=== PATIENT | male | born 1995 | race Caucasian/White ===

== ENCOUNTER 2017-07-06 18:33 | Observation (INO) | payer OTHER ==
[2017-07-06] MEDS ORDERED: ASPIRIN PO ONE (19:40)
[2017-07-06 19:51] LABS: Hematocrit 44.7 % (35.5-45.6); Mean Corpuscular HGB Conc 34 % (32-34); Mean Corpuscular Hemoglobin 27 pg (28-32); Mean Corpuscular Volume 82 fl (84-94); Platelet Count 196 K/mm3 (140-440); Red Blood Count 5.46 M/mm3 (3.65-5.03); Red Cell Distribution Width 13.8 % (13.2-15.2)
[2017-07-06 20:05] LABS: Alanine Aminotransferase 13 units/L (7-56); Albumin 4.1 g/dL (3.9-5); BUN/Creatinine Ratio 12; Blood Urea Nitrogen 7 mg/dL (9-20); Calcium 8.6 mg/dL (8.4-10.2); Hemolysis Index 10
[2017-07-06 20:18] LABS: HDL Cholesterol 30 mg/dL (40-59); LDL Cholesterol,Direct 46 mg/dL (50-130)
[2017-07-06 21:10] LABS: Band Neutrophils # (Manual) 0.1 K/mm3; Basophils % (Manual) 0 % (0.0-1.8); Total Cells Counted 100
[2017-07-06 21:11] LABS: RBC Morphology Normal
[2017-07-06 21:32] LABS: Bilirubin,Urine NEG (Negative); Blood,Urine NEG (Negative); Color,Urine Straw (Yellow); Protein,Urine <15 mg/dL mg/dL (Negative); Urobilinogen,Urine < 2.0 mg/dL (<2.0)
[2017-07-06] MEDS ORDERED: TORADOL IV ONE (21:36)
--- NOTE | 2017-07-06 23:40 | Emergency Department Report ---
ED Chest Pain HPI - General Chief Complaint: Dizziness Stated Complaint: FLU LIKE SYMPTOMS Time Seen by Provider: 07/06/17 21:16 Source: patient Mode of arrival: Ambulatory Limitations: No Limitations - History of Present Illness Initial Comments: Patient is a 22-year-old male who is presenting with chest pain. Patient states that roughly 3-4 days ago he had several days? Dominate with fever this started to subside and he started beginning to have chest discomfort. Patient states the chest discomfort has been slowly and gradually tightening in its severity. Patient states is approximately a 6 out of 10 at this time. Patient states is worse when he reads deep. Patient denies any cough congestion and abdominal pain current nausea vomiting or diarrhea at this time. 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 Otherwise this patient has no past medical history Severity scale (0 -10): 7 - Related Data Allergies Allergy/AdvReac Type Severity Reaction Status Date / Time No Known Allergies Allergy Unverified 07/06/17 19:33 Heart Score - HEART Score History: Slightly suspicious EKG: Normal Age: < 45 Risk factors: No known risk factors Troponin: 1-3x normal limit HEART Score: 1 ED Review of Systems ROS: Stated complaint: FLU LIKE SYMPTOMS Other details as noted in HPI Comment: All other systems reviewed and negative ED Past Medical Hx - Past Medical History Previous Medical History?: Yes Additional medical history: taxoplasmosis - Surgical History Past Surgical History?: Yes Additional Surgical History: testicular @ 1 yrs old - Social History Smoking Status: Never Smoker Substance Use Type: Alcohol ED Physical Exam - General Limitations: No Limitations General appearance: alert, in no apparent distress - Head Head exam: Present: atraumatic, normocephalic - Eye Eye exam: Present: normal appearance - ENT ENT exam: Present: mucous membranes moist - Neck Neck exam: Present: normal inspection - Respiratory Respiratory exam: Present: normal lung sounds bilaterally. Absent: respiratory distress - Cardiovascular Cardiovascular Exam: Present: regular rate, normal rhythm. Absent: systolic murmur, diastolic murmur, rubs, gallop - GI/Abdominal GI/Abdominal exam: Present: soft, normal bowel sounds - Rectal Rectal exam: Present: deferred - Extremities Exam Extremities exam: Present: normal inspection - Back Exam Back exam: Present: normal inspection - Neurological Exam Neurological exam: Present: alert, oriented X3 - Psychiatric Psychiatric exam: Present: normal affect, normal mood - Skin Skin exam: Present: warm, dry, intact, normal color. Absent: rash ED Course Vital Signs 07/06/17 07/06/17 19:33 22:36 Temperature 98.5 F Pulse Rate 69 Respiratory 16 18 Rate Blood Pressure 98/63 O2 Sat by Pulse 100 Oximetry ZIYAD score - Ziyad Score Age > 65: (0) No Aspirin use within the Past 7 Days: (0) No 3 or more CAD Risk Factors: (0) No 2 or more Angina events in past 24 hrs: (0) No Known CAD with more than 50% Stenosis: (0) No Elevated Cardiac Markers: (0) No ST Deviation Greater than 0.5mm: (0) No ZIYAD Score: 0 ED Medical Decision Making - Lab Data Result diagrams: 07/06/17 19:43 07/06/17 19:43 Lab Results 07/06/17 07/06/17 07/06/17 Range/Units 19:43 19:43 21:49 WBC 6.4 (4.5-11.0) K/mm3 RBC 5.46 H (3.65-5.03) M/mm3 Hgb 15.0 (11.8-15.2) gm/dl Hct 44.7 (35.5-45.6) % MCV 82 L (84-94) fl MCH 27 L (28-32) pg MCHC 34 (32-34) % RDW 13.8 (13.2-15.2) % Plt Count 196 (140-440) K/mm3 [place] % (Auto) Flexographic Press Plate Setter Add Manual Diff Complete Total Counted 100 Seg Neuts % (Manual) 51.0 (40.0-70.0) % Band Neutrophils % 1.0 % Lymphocytes % (Manual) 26.0 (13.4-35.0) % Reactive Lymphs % (Man) 2.0 % Monocytes % (Manual) 19.0 H (0.0-7.3) % Eosinophils % (Manual) 1.0 (0.0-4.3) % Basophils % (Manual) 0 (0.0-1.8) % Metamyelocytes % 0 % Myelocytes % 0 % Promyelocytes % 0 % Blast Cells % 0 % Nucleated RBC % Not Reportable Seg Neutrophils # Man 3.3 (1.8-7.7) K/mm3 Band Neutrophils # 0.1 K/mm3 Lymphocytes # (Manual) 1.7 (1.2-5.4) K/mm3 Abs React Lymphs (Man) 0.1 K/mm3 Monocytes # (Manual) 1.2 H (0.0-0.8) K/mm3 Eosinophils # (Manual) 0.1 (0.0-0.4) K/mm3 Basophils # (Manual) 0.0 (0.0-0.1) K/mm3 Metamyelocytes # 0.0 K/mm3 Myelocytes # 0.0 K/mm3 Promyelocytes # 0.0 K/mm3 Blast Cells # 0.0 K/mm3 WBC Morphology Not Reportable Hypersegmented Neuts Not Reportable Hyposegmented Neuts Not Reportable Hypogranular Neuts Not Reportable Smudge Cells Not Reportable Toxic Granulation Not Reportable Toxic Vacuolation Not Reportable Dohle Bodies Not Reportable Pelger-Huet Anomaly Not Reportable [place] Rods Not Reportable Platelet Estimate Appears normal Clumped Platelets Not Reportable Plt Clumps, EDTA Not Reportable Large Platelets Not Reportable Giant Platelets Not Reportable Platelet Satelliting Not Reportable Plt Morphology Comment Not Reportable RBC Morphology Normal Dimorphic RBCs Not Reportable Polychromasia Not Reportable Hypochromasia Not Reportable Poikilocytosis Not Reportable Anisocytosis Not Reportable Microcytosis Not Reportable Macrocytosis Not Reportable Spherocytes Not Reportable Pappenheimer Bodies Not Reportable Sickle Cells Not Reportable Target Cells Not Reportable Tear Drop Cells Not Reportable Ovalocytes Not Reportable Helmet Cells Not Reportable [place] Bodies Not Reportable [place] Rings Not Reportable [place]anna Cells Not Reportable Bite Cells Not Reportable Crenated Cell Not Reportable Elliptocytes Not Reportable Acanthocytes (Spur) Not Reportable Rouleaux Not Reportable Hemoglobin C Crystals Not Reportable Schistocytes Not Reportable Malaria parasites Not Reportable [place] Bodies Not Reportable Hem Pathologist Commnt No D-Dimer < 135.0 (0-234) ng/mlDDU Sodium 137 (137-145) mmol/L Potassium 4.4 (3.6-5.0) mmol/L Chloride 100.6 (98-107) mmol/L Carbon Dioxide 26 (22-30) mmol/L Anion Gap 15 mmol/L BUN 7 L (9-20) mg/dL Creatinine 0.6 L (0.8-1.5) mg/dL Estimated GFR > 60 ml/min BUN/Creatinine Ratio 12 % Glucose 86 (75-100) mg/dL Calcium 8.6 (8.4-10.2) mg/dL Total Bilirubin 0.70 (0.1-1.2) mg/dL AST 20 (5-40) units/L ALT 13 (7-56) units/L Alkaline Phosphatase 59 (35-129) units/L Troponin T 0.070 H (0.00-0.029) ng/mL Total Protein 6.9 (6.3-8.2) g/dL Albumin 4.1 (3.9-5) g/dL Albumin/Globulin Ratio 1.5 % Triglycerides 82 (2-149) mg/dL Cholesterol 87 (50-199) mg/dL LDL Cholesterol Direct 46 L (50-130) mg/dL HDL Cholesterol 30 L (40-59) mg/dL Cholesterol/HDL Ratio 2.90 % Urine Color (Yellow) Urine Turbidity (Clear) Urine pH (5.0-7.0) Ur Specific [place] (1.003-1.030) Urine Protein (Negative) mg/dL Urine Glucose (UA) (Negative) mg/dL Urine Ketones (Negative) mg/dL Urine Blood (Negative) Urine Nitrite (Negative) Urine Bilirubin (Negative) Urine Urobilinogen (<2.0) mg/dL Ur Leukocyte Esterase (Negative) Urine WBC (Auto) (0.0-6.0) /HPF Urine RBC (Auto) (0.0-6.0) /HPF 07/06/17 07/06/17 Range/Units 22:05 Unknown WBC (4.5-11.0) K/mm3 RBC (3.65-5.03) M/mm3 Hgb (11.8-15.2) gm/dl Hct (35.5-45.6) % MCV (84-94) fl MCH (28-32) pg MCHC (32-34) % RDW (13.2-15.2) % Plt Count (140-440) K/mm3 [place] % (Auto) Add Manual Diff Total Counted Seg Neuts % (Manual) (40.0-70.0) % Band Neutrophils % % Lymphocytes % (Manual) (13.4-35.0) % Reactive Lymphs % (Man) % Monocytes % (Manual) (0.0-7.3) % Eosinophils % (Manual) (0.0-4.3) % Basophils % (Manual) (0.0-1.8) % Metamyelocytes % % Myelocytes % % Promyelocytes % % Blast Cells % % Nucleated RBC % Seg Neutrophils # Man (1.8-7.7) K/mm3 Band Neutrophils # K/mm3 Lymphocytes # (Manual) (1.2-5.4) K/mm3 Abs React Lymphs (Man) K/mm3 Monocytes # (Manual) (0.0-0.8) K/mm3 Eosinophils # (Manual) (0.0-0.4) K/mm3 Basophils # (Manual) (0.0-0.1) K/mm3 Metamyelocytes # K/mm3 Myelocytes # K/mm3 Promyelocytes # K/mm3 Blast Cells # K/mm3 WBC Morphology Hypersegmented Neuts Hyposegmented Neuts Hypogranular Neuts Smudge Cells Toxic Granulation Toxic Vacuolation Dohle Bodies Pelger-Huet Anomaly [place] Rods Platelet Estimate Clumped Platelets Plt Clumps, EDTA Large Platelets Giant Platelets Platelet Satelliting Plt Morphology Comment RBC Morphology Dimorphic RBCs Polychromasia Hypochromasia Poikilocytosis Anisocytosis Microcytosis Macrocytosis Spherocytes Pappenheimer Bodies Sickle Cells Target Cells Tear Drop Cells Ovalocytes Helmet Cells [place]ph[place] Bodies [place] Rings [place] Cells Bite Cells Crenated Cell Elliptocytes Acanthocytes (Spur) Rouleaux Hemoglobin C Crystals Schistocytes Malaria parasites [place] Bodies Hem Pathologist Commnt D-Dimer (0-234) ng/mlDDU Sodium (137-145) mmol/L Potassium (3.6-5.0) mmol/L Chloride (98-107) mmol/L Carbon Dioxide (22-30) mmol/L Anion Gap mmol/L BUN (9-20) mg/dL Creatinine (0.8-1.5) mg/dL Estimated GFR ml/min BUN/Creatinine Ratio % Glucose (75-100) mg/dL Calcium (8.4-10.2) mg/dL Total Bilirubin (0.1-1.2) mg/dL AST (5-40) units/L ALT (7-56) units/L Alkaline Phosphatase (35-129) units/L Troponin T 0.076 H (0.00-0.029) ng/mL Total Protein (6.3-8.2) g/dL Albumin (3.9-5) g/dL Albumin/Globulin Ratio % Triglycerides (2-149) mg/dL Cholesterol (50-199) mg/dL LDL Cholesterol Direct (50-130) mg/dL HDL Cholesterol (40-59) mg/dL Cholesterol/HDL Ratio % Urine Color Straw (Yellow) Urine Turbidity Clear (Clear) Urine pH 6.0 (5.0-7.0) Ur Specific [place] 1.004 (1.003-1.030) Urine Protein <15 mg/dl (Negative) mg/dL Urine Glucose (UA) Neg (Negative) mg/dL Urine Ketones Neg (Negative) mg/dL Urine Blood Neg (Negative) Urine Nitrite Neg (Negative) Urine Bilirubin Neg (Negative) Urine Urobilinogen < 2.0 (<2.0) mg/dL Ur Leukocyte Esterase Neg (Negative) Urine WBC (Auto) 1.0 (0.0-6.0) /HPF Urine RBC (Auto) 1.0 (0.0-6.0) /HPF - Radiology Data Radiology results: report reviewed No acute process - Medical Decision Making Patient is a 22-year-old male who is presenting with chest pain. Patient has no risk factors for coronary disease however he did on routine initiation of chest pain protocol have elevated troponin and this was repeated to ensure this was not lab error and lashes slightly higher than the initial value. Patient will be admitted to the hospitalist service for cardiac rule out and risk stratification for coronary disease. Critical care attestation.: If time is entered above; I have spent that time in minutes in the direct care of this critically ill patient, excluding procedure time. ED Disposition Clinical Impression: Elevated troponin Chest pain Qualifiers: Chest pain type: chest pain on breathing Qualified Code(s): R07.1 - Chest pain on breathing; R07.81 - Pleurodynia Disposition: OP ADMIT IP TO THIS HOSP Is pt being admited?: No Does the pt Need Aspirin: No Condition: Stable Instructions: Chest Pain (ED) Referrals: SHERINE LAURA MD [Primary Care Provider] - 3-5 Days
[2017-07-06] MEDS ORDERED: SODIUM CHLORIDE FLUSH SYRINGE 10 ML IV PRN (23:53)
[2017-07-06] MEDS ORDERED: PERCOCET 5/325 PO PRN (23:53)
[2017-07-06] MEDS ORDERED: ZOFRAN IV PRN (23:53)
[2017-07-06] MEDS ORDERED: TYLENOL PO PRN (23:53)
--- NOTE | 2017-07-06 23:53 | History and Physical Report ---
History of Present Illness Date of examination: 07/06/17 History of present illness: 22 year old man with history of toxoplasmosis of the eye comes to the emergency room complaining of subjective fever 3 days and chest pain. Pain is in the epigastric area which she described as a punch in sensation, constant, intensity 5/10, no radiation, cannot identify exacerbating or relieving factors. No cough, rhinorrhea, sick contacts. No nausea, vomiting, shortness breath, diaphoresis or palpitation. Also complaining of a burning sensation in his abdomen Review Of Systems: Constitutional: no weight loss Ears, eyes, nose, mouth and throat: no nasal congestion, no nasal discharge, no sinus pressure, blurry vision, diplopia Neck: No neck pain or rigidity. Cardiovascular: orthopnea, palpitations Respiratory: No shortness of breath, cough Gastrointestinal: abdominal pain, hematochezia Genitourinary : no dysuria, frequency , hematuria Musculoskeletal: no muscle ache Integumentary: no rash, no pruritis Neurological: no parathesias, focal weakness Endocrine: no cold or heat intolerance, no polyuria or polydipsia Hematologic/Lymphatic: no easy bruising, no easy bleeding, no gland swelling Allergic/Immunologic: no urticaria, no angioedema. PAST MEDICAL HISTORY: Toxoplasmosis in the right eye PAST SURGICAL HISTORY: Surgery on testicle SOCIAL HISTORY: social alcohol, denies tobacco, drugs FAMILY HISTORY: hypertension Medications and Allergies Allergies Allergy/AdvReac Type Severity Reaction Status Date / Time No Known Allergies Allergy Unverified 07/06/17 19:33 Home Medications Medication Instructions Recorded Confirmed Last Taken Type Sulfamethoxazole/Trimethoprim 1 tab PO Q48HR 07/07/17 07/07/17 07/06/17 History [Sulfamethoxazole-Tmp Ss Tablet] Ibuprofen [Motrin 400 MG tab] 400 mg PO Q8H #42 tablet 07/08/17 Unknown Rx Ibuprofen [Motrin] 400 mg PO Q8H #42 tablet 07/08/17 Unknown Rx Pantoprazole [Protonix TAB] 40 mg PO QDAY #14 tablet 07/08/17 Unknown Rx Pantoprazole [Protonix] 40 mg PO QDAY #30 tablet 07/08/17 Unknown Rx oxyCODONE /ACETAMINOPHEN [Percocet 1 tab PO Q6H PRN #10 tablet 07/08/17 Unknown Rx 5/325 mg] Exam - Physical Exam Narrative exam: Gen. appearance: Patient lying in bed, no apparent distress HEENT: Normocephalic, atraumatic, pupils equally round and reactive to light, extraocular movement intact, and no sclericterus,. No JVD or thyromegaly or nodule,neck supple, no carotid bruit ,mucous membranes moist, no exudate or erythema Heart: S1, S2, regular rate and rhythm Lungs: Clear to auscultation bilaterally, breathing comfortable Abdomen: Positive bowel sounds, nontender, nondistended, no organomegaly Extremity: No edema, cyanosis, clubbing Skin: No rash, nodules, warm, dry Neuro: Oriented 3, cranial nerves II-12 intact, speech is fluent, motor and sensory intact - Constitutional Vitals: Temp Pulse Resp BP Pulse Ox 98.5 F 69 18 98/63 100 07/06/17 19:33 07/06/17 19:33 07/06/17 22:36 07/06/17 19:33 07/06/17 19:33 Results - Labs CBC & Chem 7: 07/07/17 04:22 07/07/17 04:22 Labs: Abnormal lab results 07/06/17 07/06/17 07/06/17 Range/Units 19:43 19:43 22:05 RBC 5.46 H (3.65-5.03) M/mm3 MCV 82 L (84-94) fl MCH 27 L (28-32) pg Monocytes % (Manual) 19.0 H (0.0-7.3) % Monocytes # (Manual) 1.2 H (0.0-0.8) K/mm3 BUN 7 L (9-20) mg/dL Creatinine 0.6 L (0.8-1.5) mg/dL Troponin T 0.070 H 0.076 H (0.00-0.029) ng/mL LDL Cholesterol Direct 46 L (50-130) mg/dL HDL Cholesterol 30 L (40-59) mg/dL - Imaging and Cardiology EKG: image reviewed Chest x-ray: image reviewed Assessment and Plan Assessment Atypical chest pain Plan Admit to medicine Check cardiac enzymes, echo, consult cardiology Percocet, DVT prophalaxis
--- NOTE | 2017-07-07 01:10 | XRay Report ---
FINAL REPORT EXAM: XR CHEST ROUTINE 2V HISTORY: chest pain TECHNIQUE: 2 views of the chest. PRIORS: None. FINDINGS: The cardiomediastinal silhouette appears normal. The lungs are clear. The bones and soft tissues are unremarkable. IMPRESSION: No evidence of acute cardiopulmonary disease
[2017-07-07 05:20] LABS: Hematocrit 42.1 % (35.5-45.6); Hemoglobin 13.9 gm/dl (11.8-15.2); Mean Corpuscular HGB Conc 33 % (32-34); Mean Corpuscular Hemoglobin 27 pg (28-32); Mean Corpuscular Volume 82 fl (84-94); Platelet Count 183 K/mm3 (140-440); Red Blood Count 5.13 M/mm3 (3.65-5.03); Red Cell Distribution Width 13.7 % (13.2-15.2)
[2017-07-07 05:27] LABS: BUN/Creatinine Ratio 14; Blood Urea Nitrogen 11 mg/dL (9-20); Calcium 8.5 mg/dL (8.4-10.2); Hemolysis Index 4
[2017-07-07 06:19] LABS: Band Neutrophils # (Manual) 0.4 K/mm3; Basophils % (Manual) 0 % (0.0-1.8); Eosinophils % (Manual) 0 % (0.0-4.3); RBC Morphology Normal; Total Cells Counted 100
--- NOTE | 2017-07-07 09:22 | Consultation ---
History of Present Illness Consult date: 07/07/17 Consult reason: chest pain, elevated troponin History of present illness: Patient is a 22yr old male who was brought to this hospital with complaints of chest pain. Patient reports fever followed with gradual chest pain over 3 days. Pain worsens with deep breathing. There are no reports of shortness of breath or palpitations. Patient denies a prior cardiac history. Chest xray is negative. Labs values shows mild elevation of troponins. A 12 lead ECG is a sinus rhythm with diffuse ST segment elevation suggestive of pericarditis. A cardiac consultation is requested for further evaluation. Medications and Allergies Allergies Allergy/AdvReac Type Severity Reaction Status Date / Time No Known Allergies Allergy Unverified 07/06/17 19:33 Home Medications Medication Instructions Recorded Confirmed Last Taken Type Sulfamethoxazole/Trimethoprim 1 tab PO Q48HR 07/07/17 07/07/17 07/06/17 History [Sulfamethoxazole-Tmp Ss Tablet] Active Meds: Active Medications Acetaminophen (Tylenol) 650 mg PO Q4H PRN PRN Reason: Pain MILD(1-3)/Fever >100.5/ALVAREZ Enoxaparin Sodium (Lovenox) 40 mg SUB-Q QDAY CHAUNCEY Ondansetron HCl (Zofran) 4 mg IV Q8H PRN PRN Reason: Nausea And Vomiting Oxycodone/Acetaminophen (Percocet 5/325) 1 tab PO Q6H PRN PRN Reason: Pain, Moderate (4-6) Sodium Chloride (Sodium Chloride Flush Syringe 10 Ml) 10 ml IV BID CHAUNCEY Sodium Chloride (Sodium Chloride Flush Syringe 10 Ml) 10 ml IV PRN PRN PRN Reason: LINE FLUSH Physical Examination Vital Signs Temp Pulse Resp BP Pulse Ox 98.5 F 69 16 98/63 100 07/06/17 19:33 07/06/17 19:33 07/06/17 19:33 07/06/17 19:33 07/06/17 19:33 General appearance: no acute distress HEENT: Positive: PERRL Cardiac: Positive: Reg Rate and Rhythm Neuro: Positive: Grossly Intact Results 07/07/17 04:22 07/07/17 04:22 Cardiac Enzymes 07/06/17 Range/Units 19:43 AST 20 (5-40) units/L Lipids 07/06/17 Range/Units 19:43 Triglycerides 82 (2-149) mg/dL Cholesterol 87 (50-199) mg/dL HDL Cholesterol 30 L (40-59) mg/dL Cholesterol/HDL Ratio 2.90 % CBC 07/06/17 07/07/17 Range/Units 19:43 04:22 WBC 6.4 6.6 (4.5-11.0) K/mm3 RBC 5.46 H 5.13 H (3.65-5.03) M/mm3 Hgb 15.0 13.9 (11.8-15.2) gm/dl Hct 44.7 42.1 (35.5-45.6) % Plt Count 196 183 (140-440) K/mm3 Comprehensive Metabolic Panel 07/06/17 07/07/17 Range/Units 19:43 04:22 Sodium 137 140 (137-145) mmol/L Potassium 4.4 4.3 (3.6-5.0) mmol/L Chloride 100.6 100.3 (98-107) mmol/L Carbon Dioxide 26 28 (22-30) mmol/L BUN 7 L 11 (9-20) mg/dL Creatinine 0.6 L 0.8 (0.8-1.5) mg/dL Glucose 86 92 (75-100) mg/dL Calcium 8.6 8.5 (8.4-10.2) mg/dL AST 20 (5-40) units/L ALT 13 (7-56) units/L Alkaline Phosphatase 59 (35-129) units/L Total Protein 6.9 (6.3-8.2) g/dL Albumin 4.1 (3.9-5) g/dL Assessment and Plan Chest pain ECG diffuse ST segment elevation suggestive of pericarditis Elevated troponin, nonspecific Recommendations: An echocardiogram for LVEF assessment. Non-steroidal anti-inflammatory drugs (motrin) every 8 hours for suspected pericarditis.
[2017-07-07] MEDS ORDERED: SODIUM CHLORIDE FLUSH SYRINGE 10 ML IV SCH (10:00)
--- NOTE | 2017-07-07 10:38 | Progress Note ---
Assessment and Plan Assessment and plan: Acute pericarditis. Patient with chest pain and ECG findings of diffuse ST segment elevation suggestive of pericarditis. Follow-up echocardiogram. Cardiology following. Continue Motrin every 8 hours. Elevated troponin. Etiology likely secondary to #1. History Interval history: No new issues overnight. Hospitalist Physical - Constitutional Vitals: Temp Pulse Resp BP Pulse Ox 98.8 F 71 18 92/40 84 07/07/17 05:17 07/07/17 05:20 07/07/17 05:17 07/07/17 05:17 07/07/17 05:20 General appearance: Present: no acute distress - EENT Eyes: Present: PERRL, EOM intact ENT: hearing intact, clear oral mucosa, dentition normal - Neck Neck: Present: supple, normal ROM - Respiratory Respiratory effort: normal Respiratory: bilateral: CTA - Cardiovascular Rhythm: regular Heart Sounds: Present: S1 & S2. Absent: gallop, rub - Extremities Extremities: no ischemia, No edema, Full ROM - Abdominal General gastrointestinal: soft, non-tender, non-distended, normal bowel sounds - Integumentary Integumentary: Present: clear, warm, dry - Neurologic Neurologic: CNII-XII intact, moves all extremities Results - Labs CBC & Chem 7: 07/07/17 04:22 07/07/17 04:22 Labs: Laboratory Last Values WBC 6.6 K/mm3 (4.5-11.0) 07/07/17 04:22 RBC 5.13 M/mm3 (3.65-5.03) H 07/07/17 04:22 Hgb 13.9 gm/dl (11.8-15.2) 07/07/17 04:22 Hct 42.1 % (35.5-45.6) 07/07/17 04:22 MCV 82 fl (84-94) L 07/07/17 04:22 MCH 27 pg (28-32) L 07/07/17 04:22 MCHC 33 % (32-34) 07/07/17 04:22 RDW 13.7 % (13.2-15.2) 07/07/17 04:22 Plt Count 183 K/mm3 (140-440) 07/07/17 04:22 Edwards % (Auto) Idea Man 07/07/17 04:22 Add Manual Diff Complete 07/07/17 04:22 Total Counted 100 07/07/17 04:22 Seg Neuts % (Manual) 48.0 % (40.0-70.0) 07/07/17 04:22 Band Neutrophils % 6.0 % 07/07/17 04:22 Lymphocytes % (Manual) 33.0 % (13.4-35.0) 07/07/17 04:22 Reactive Lymphs % (Man) 0 % 07/07/17 04:22 Monocytes % (Manual) 10.0 % (0.0-7.3) H 07/07/17 04:22 Eosinophils % (Manual) 0 % (0.0-4.3) 07/07/17 04:22 Basophils % (Manual) 0 % (0.0-1.8) 07/07/17 04:22 Metamyelocytes % 3.0 % 07/07/17 04:22 Myelocytes % 0 % 07/07/17 04:22 Promyelocytes % 0 % 07/07/17 04:22 Blast Cells % 0 % 07/07/17 04:22 Nucleated RBC % Not Reportable 07/07/17 04:22 Seg Neutrophils # Man 3.2 K/mm3 (1.8-7.7) 07/07/17 04:22 Band Neutrophils # 0.4 K/mm3 07/07/17 04:22 Lymphocytes # (Manual) 2.2 K/mm3 (1.2-5.4) 07/07/17 04:22 Abs React Lymphs (Man) 0.0 K/mm3 07/07/17 04:22 Monocytes # (Manual) 0.7 K/mm3 (0.0-0.8) 07/07/17 04:22 Eosinophils # (Manual) 0.0 K/mm3 (0.0-0.4) 07/07/17 04:22 Basophils # (Manual) 0.0 K/mm3 (0.0-0.1) 07/07/17 04:22 Metamyelocytes # 0.2 K/mm3 07/07/17 04:22 Myelocytes # 0.0 K/mm3 07/07/17 04:22 Promyelocytes # 0.0 K/mm3 07/07/17 04:22 Blast Cells # 0.0 K/mm3 07/07/17 04:22 WBC Morphology Not Reportable 07/07/17 04:22 Hypersegmented Neuts Not Reportable 07/07/17 04:22 Hyposegmented Neuts Not Reportable 07/07/17 04:22 Hypogranular Neuts Not Reportable 07/07/17 04:22 Smudge Cells Not Reportable 07/07/17 04:22 Toxic Granulation Not Reportable 07/07/17 04:22 Toxic Vacuolation Not Reportable 07/07/17 04:22 Dohle Bodies Not Reportable 07/07/17 04:22 Pelger-Huet Anomaly Not Reportable 07/07/17 04:22 Katy Rods Not Reportable 07/07/17 04:22 Platelet Estimate Appears normal 07/07/17 04:22 Clumped Platelets Not Reportable 07/07/17 04:22 Plt Clumps, EDTA Not Reportable 07/07/17 04:22 Large Platelets Not Reportable 07/07/17 04:22 Giant Platelets Not Reportable 07/07/17 04:22 Platelet Satelliting Not Reportable 07/07/17 04:22 Plt Morphology Comment Not Reportable 07/07/17 04:22 RBC Morphology Normal 07/07/17 04:22 Dimorphic RBCs Not Reportable 07/07/17 04:22 Polychromasia Not Reportable 07/07/17 04:22 Hypochromasia Not Reportable 07/07/17 04:22 Poikilocytosis Not Reportable 07/07/17 04:22 Anisocytosis Not Reportable 07/07/17 04:22 Microcytosis Not Reportable 07/07/17 04:22 Macrocytosis Not Reportable 07/07/17 04:22 Spherocytes Not Reportable 07/07/17 04:22 Pappenheimer Bodies Not Reportable 07/07/17 04:22 Sickle Cells Not Reportable 07/07/17 04:22 Target Cells Not Reportable 07/07/17 04:22 Tear Drop Cells Not Reportable 07/07/17 04:22 Ovalocytes Not Reportable 07/07/17 04:22 Helmet Cells Not Reportable 07/07/17 04:22 Hemphill-Mcgovern Bodies Not Reportable 07/07/17 04:22 [place] Rings Not Reportable 07/07/17 04:22 [place] Cells Not Reportable 07/07/17 04:22 Bite Cells Not Reportable 07/07/17 04:22 Crenated Cell Not Reportable 07/07/17 04:22 Elliptocytes Not Reportable 07/07/17 04:22 Acanthocytes (Spur) Not Reportable 07/07/17 04:22 Rouleaux Not Reportable 07/07/17 04:22 Hemoglobin C Crystals Not Reportable 07/07/17 04:22 Schistocytes Not Reportable 07/07/17 04:22 Malaria parasites Not Reportable 07/07/17 04:22 [place] Bodies Not Reportable 07/07/17 04:22 Hem Pathologist Commnt No 07/07/17 04:22 D-Dimer < 135.0 ng/mlDDU (0-234) 07/06/17 21:49 Sodium 140 mmol/L (137-145) 07/07/17 04:22 Potassium 4.3 mmol/L (3.6-5.0) 07/07/17 04:22 Chloride 100.3 mmol/L (98-107) 07/07/17 04:22 Carbon Dioxide 28 mmol/L (22-30) 07/07/17 04:22 Anion Gap 16 mmol/L 07/07/17 04:22 BUN 11 mg/dL (9-20) 07/07/17 04:22 Creatinine 0.8 mg/dL (0.8-1.5) 07/07/17 04:22 Estimated GFR > 60 ml/min 07/07/17 04:22 BUN/Creatinine Ratio 14 % 07/07/17 04:22 Glucose 92 mg/dL (75-100) 07/07/17 04:22 Calcium 8.5 mg/dL (8.4-10.2) 07/07/17 04:22 Total Bilirubin 0.70 mg/dL (0.1-1.2) 07/06/17 19:43 AST 20 units/L (5-40) 07/06/17 19:43 ALT 13 units/L (7-56) 07/06/17 19:43 Alkaline Phosphatase 59 units/L (35-129) 07/06/17 19:43 Troponin T 0.100 ng/mL (0.00-0.029) H 07/07/17 01:58 Total Protein 6.9 g/dL (6.3-8.2) 07/06/17 19:43 Albumin 4.1 g/dL (3.9-5) 07/06/17 19:43 Albumin/Globulin Ratio 1.5 % 07/06/17 19:43 Triglycerides 82 mg/dL (2-149) 07/06/17 19:43 Cholesterol 87 mg/dL (50-199) 07/06/17 19:43 LDL Cholesterol Direct 46 mg/dL (50-130) L 07/06/17 19:43 HDL Cholesterol 30 mg/dL (40-59) L 07/06/17 19:43 Cholesterol/HDL Ratio 2.90 % 07/06/17 19:43 Urine Color Straw (Yellow) 07/06/17 Unknown Urine Turbidity Clear (Clear) 07/06/17 Unknown Urine pH 6.0 (5.0-7.0) 07/06/17 Unknown Ur Specific Bath 1.004 (1.003-1.030) 07/06/17 Unknown Urine Protein <15 mg/dl mg/dL (Negative) 07/06/17 Unknown Urine Glucose (UA) Neg mg/dL (Negative) 07/06/17 Unknown Urine Ketones Neg mg/dL (Negative) 07/06/17 Unknown Urine Blood Neg (Negative) 07/06/17 Unknown Urine Nitrite Neg (Negative) 07/06/17 Unknown Urine Bilirubin Neg (Negative) 07/06/17 Unknown Urine Urobilinogen < 2.0 mg/dL (<2.0) 07/06/17 Unknown Ur Leukocyte Esterase Neg (Negative) 07/06/17 Unknown Urine WBC (Auto) 1.0 /HPF (0.0-6.0) 07/06/17 Unknown Urine RBC (Auto) 1.0 /HPF (0.0-6.0) 07/06/17 Unknown
[2017-07-07] MEDS: LOVENOX SUB-Q SCH (11:11)
[2017-07-07] MEDS: MOTRIN PO SCH ×2 (18:05→21:22)
[2017-07-07] MEDS: PROTONIX PO SCH (18:05)
[2017-07-08] MEDS: MOTRIN PO SCH ×2 (02:35→11:00)
[2017-07-08 08:43] VITALS: BP 97/39
--- NOTE | 2017-07-08 10:04 | Discharge Summary ---
Providers - Providers Date of Admission: 07/06/17 23:53 Date of discharge: 07/08/17 Attending physician: ALISIA MEDINA 07/06/17 23:53 Consult to Physician [CONS] Routine Comment: Consulting Provider: ANEL GOODWIN Physician Instructions: Reason For Exam: cp/ hi trop Primary care physician: SHERINE LAURA Hospitalization Reason for admission: cp Condition: Stable Hospital course: Patient is a 22yr old male who was brought to this hospital with complaints of chest pain. Patient reported fever followed with gradual chest pain over 3 days. Pain worsened with deep breathing. There were no reports of shortness of breath or palpitations. Patient denied a prior cardiac history. Chest xray was negative. Labs values showed mild elevation of troponins. A 12 lead ECG revealed a sinus rhythm with diffuse ST segment elevation suggestive of pericarditis. A cardiac consultation was obtained for further evaluation. Cardiology felt that the findings were consistent with acute pericarditis. Echocardiogram revealed left ventricular chamber size was normal with EF of 55- 60%. There was mild tricuspid regurgitation. Cardiology recommended Motrin 400 mg by mouth every 8 hours 2 weeks and Protonix 40 mg by mouth daily 2 weeks. Dedicated discharge time 32 minutes. Disposition: - TO HOME OR SELFCARE Time spent for discharge: 32 - Discharge Diagnoses (1) Pericarditis Status: Acute (2) Chest pain Status: Acute Qualifiers: Chest pain type: chest pain on breathing Qualified Code(s): R07.1 - Chest pain on breathing; R07.81 - Pleurodynia (3) Elevated troponin Status: Acute Core Measure Documentation - Palliative Care Palliative Care/ Comfort Measures: Not Applicable - Core Measures Any of the following diagnoses?: none Exam - Constitutional Vitals: Temp Pulse Resp BP Pulse Ox 98.1 F 54 L 18 97/39 98 07/08/17 08:08 07/08/17 08:08 07/08/17 08:08 07/08/17 08:08 07/08/17 08:08 General appearance: Present: no acute distress, well-nourished - EENT Eyes: Present: PERRL ENT: hearing intact, clear oral mucosa - Neck Neck: Present: supple, normal ROM - Respiratory Respiratory effort: normal Respiratory: bilateral: CTA - Cardiovascular Heart Sounds: Present: S1 & S2. Absent: rub, click - Extremities Extremities: pulses symmetrical, No edema Peripheral Pulses: within normal limits - Abdominal General gastrointestinal: Present: soft, non-tender, non-distended, normal bowel sounds Male genitourinary: Present: normal - Integumentary Integumentary: Present: clear, warm, dry - Musculoskeletal Musculoskeletal: gait normal, strength equal bilaterally - Psychiatric Psychiatric: appropriate mood/affect, intact judgment & insight - Neurologic Neurologic: CNII-XII intact, moves all extremities Plan Activity: no restrictions Weight Bearing Status: Full Weight Bearing Diet: regular Follow up with: SHERINE LAURA MD [Primary Care Provider] - 3-5 Days SUZANNE HOROWITZ MD [Staff Physician] - 7 Days Prescriptions: Ibuprofen [Motrin] 400 mg PO Q8H #42 tablet Ibuprofen [Motrin 400 MG tab] 400 mg PO Q8H #42 tablet oxyCODONE /ACETAMINOPHEN [Percocet 5/325 mg] 1 tab PO Q6H PRN #10 tablet PRN Reason: Pain, Moderate (4-6) Pantoprazole [Protonix TAB] 40 mg PO QDAY #14 tablet Pantoprazole [Protonix] 40 mg PO QDAY #30 tablet
[2017-07-08] MEDS: LOVENOX SUB-Q SCH (11:00)
[2017-07-08] MEDS: PROTONIX PO SCH (11:02)
== END 2017-07-08 11:30 | disposition home or self-care (01) ==
LOC: ED 18:33 → 4A 23:53
PROVIDERS: ADMIT Internal Medicine; ATTEND Hospitalist
DX: I31.9 Disease of pericardium, unspecified (principal); R79.89 Other specified abnormal findings of blood chemistry; Z82.49 Family history of ischemic heart disease and other diseases of the circulatory system
CPT/HCPCS: 36415; 71046; 80048; 80053; 80061; 81001; 84484; 85007; 85025; 85379; 86140; 93005; 93010; 93306; 96372; 96374; 99285; G0378; J1650; J1885